=== PATIENT | male | born 1965 | race Caucasian/White ===

== ENCOUNTER 2018-03-15 09:30 | Inpatient (IN) | payer OTHER ==
[~2018-03-15] VITALS: Ht 172.7 cm; Wt 77.1 kg
[2018-03-15] MEDS ORDERED: HYZAAR 100-12.1 EACH (13:58)
[2018-03-30] MEDS ORDERED: PANTOPRAZOLE SO40 MG PO (10:44)
[2018-03-30] MEDS ORDERED: OXYC1TAB9 PO (10:44)
[2018-03-30] MEDS ORDERED: Intestinex CAP PO (10:46)
== END 2018-03-30 13:00 | disposition home or self-care (01) | DRG 331 ==
LOC: O/R 03-27 06:47 → SURH 03-27 06:47 → RECOVERY 03-27 09:30 → SURH 03-27 11:57 → RECOVERY 03-27 18:00 → SURH 03-30 13:00
PROVIDERS: ADMIT Surgery
PROC: 07TC4ZZ Resection of Pelvis Lymphatic, Percutaneous Endoscopic Approach (ICD-10-PCS; 2018-03-27)
PROC: 0DJD8ZZ Inspection of Lower Intestinal Tract, Via Natural or Artificial Opening Endoscopic (ICD-10-PCS; 2018-03-27)
PROC: 0DTN4ZZ Resection of Sigmoid Colon, Percutaneous Endoscopic Approach (ICD-10-PCS; principal; 2018-03-27 18:00)
DX: C18.7 Malignant neoplasm of sigmoid colon (principal); I11.9 Hypertensive heart disease without heart failure; D50.0 Iron deficiency anemia secondary to blood loss (chronic)

== ENCOUNTER 2019-07-31 07:05 | Day surgery (SDC) | payer OTHER ==
[~2019-07-31 07:05] MED LIST: HYZAAR 100-12.1 EACH; Intestinex CAP PO; OXYC1TAB9 PO; PANTOPRAZOLE SO40 MG PO
== END 2019-07-31 12:12 | disposition home or self-care (01) ==
LOC: AMB-ENDOS 07:05 → ADM 13:45 → AMB-ENDOS 13:45
PROVIDERS: ATTEND Surgery
DX: K62.89 Other specified diseases of anus and rectum (principal); K64.8 Other hemorrhoids

== ENCOUNTER 2020-09-02 11:35 | Day surgery (SDC) | payer OTHER | END 2020-09-02 16:40 | disposition home or self-care (01) | LOC: AMB-ENDOS 11:35 | PROVIDERS: ATTEND Surgery | DX: K62.89 Other specified diseases of anus and rectum (principal); K64.8 Other hemorrhoids; Z20.822 Contact with and (suspected) exposure to COVID-19 ==